=== PATIENT | female | born 1955 | race Native Hawaiian/Other Pacific Islander ===

== ENCOUNTER 2022-01-30 12:55 | Outpatient (CLI) | payer OTHER | END 2022-01-30 19:12 | disposition home or self-care (01) | LOC: RAD 12:55 | PROVIDERS: ATTEND Physician Assistant | DX: M25.552 Pain in left hip (principal) ==

== ENCOUNTER 2022-02-27 11:17 | Outpatient (CLI) | payer OTHER | END 2022-02-27 18:59 | disposition home or self-care (01) | LOC: RAD 11:17 | PROVIDERS: ATTEND Physician Assistant | DX: M54.59 Other low back pain (principal) ==